=== PATIENT | female | born 1940 | race Caucasian/White ===

== ENCOUNTER 2016-09-07 21:47 | Inpatient (IN) | payer OTHER, BC ==
[~2016-09-07] VITALS: Ht 152.4 cm; Wt 80.0 kg
[~2016-09-07 21:47] MED LIST: ACYCLOVIR400 MG PO; AFRIN,GENASAL D15 ML BOTH NARES; ALLOPURINOL300 MG PO; ALPRAZOLAM0.25 M2 PO; AMLODIPINE BESY10 MG PO; ASPIR 8181 M1 PO; ASPIR-LOW81 MG PO; ASPIRIN81 M2 PO; ATENOLOL/CHLOR1 EAC1 PO; ATENOLOL50 MG PO; CARDIZEM CD180 MG PO; CARVEDILOL25 MG PO; CLARITIN10 M3 PO; CLONIDINE HCL0.1 MG PO; COLACE100 MG PO; COMBIVENT; COMBIVENT RESPIM4 GM IH; COREG25 M1 PO; COUMADIN1 MG PO; COUMADIN3 MG PO; CYANOCOBAL1000 MCG/2 IM; Colchicine,Colcrys PO; DAPSONE100 MG PO; DEXAMETHASONE4 MG PO; ELIQUIS5 MG PO; ENALAPRIL MALEA20 M1 PO; ENALAPRIL MALEA20 MG PO; ENTRESTO 97 MG1 EACH PO; FOLIC ACID1 MG PO; FUROSEMIDE20 MG PO; GABAPENTIN100 MG PO; GLIPIZIDE ER2.5 MG PO; GLIPIZIDE5 MG PO; GLUCOTROL5 MG PO; HYDROCODON-ACE1 EAC5 PO; HYDROCODON-ACE1 EAC9 PO; HYDROXYCHLOROQ200 MG PO; KEFLEX500 MG PO; KLOR-CON 1010 ME1 PO; LASIX20 MG PO; LEVOFLOXACIN750 MG PO; LISINOPRIL10 MG PO; LISINOPRIL5 MG PO; LO-DOSE ASPIRIN81 M1 PO; LORATADINE10 M2 PO; METFORMIN HCL500 MG PO; METHOTREXATE2.5 M2 PO; METHOTREXATE2.5 MG PO; NEURONTIN100 MG PO; NORCO 10/3251 TABLET PO; OXYCONTIN10 MG PO; OXYCONTIN15 MG PO; PERCOCET 7.51 TABLET PO; POTASSIUM CHLO10 ME3 PO; PREDNISONE10 MG PO; PROAIR HFA8.5 GM IH; PROBIOTIC1 EAC1 PO; PROCHLORPERAZIN10 MG PO; Percocet 5/325,Endoc PO; REVLIMID10 MG PO; REVLIMID2.5 MG PO; SPIRIVA RESPIMAT4 GM IH; SPIRONOLACTONE25 MG PO; TENORETIC 501 TABLET PO; TRAVATAN BOTH EYES; TRAVATAN Z5 ML BOTH EYES; VELCADE1 MG/ML IV; VENTOLIN HFA18 GM IH; VITAMIN B PO; VITAMIN D PO; VITAMIN D2000 UNIT PO; VOLTAREN 1% GE100 GM TP; WARFARIN SODIUM3 MG PO; XANAX0.25 MG PO; ZOMETA 4 M4 MG/100 M IV; ZOMETA4 MG/5 ML IV; ZYLOPRIM100 MG PO; ZYRTEC PO
[2016-09-07 23:16] LABS: PROTHROMBIN TIME 13.9 (9.2-11.2); PTT 35.6 (25-32)
[2016-09-07 23:18] LABS: BASE EXCESS 1.9 mEq/L (-3 to +3); BICARBONATE 26.6 mEq/L (22-26); CARBOXY HGB 1.9 % (0-5); METHEMOGLOBIN 0.8 % (0-1.5); PCO2 41 mm Hg (35-45); PO2 59 mm Hg (80-100); pH 7.42 (7.35-7.45)
[2016-09-07 23:18] LABS: CHLORIDE 100 mEq/L (99-109); POTASSIUM 3.4 mEq/L (3.7-5.4); SODIUM 134 mEq/L (136-147)
[2016-09-07 23:19] LABS: COMMENTS - BLOOD GASES A+C+; DEVICE NC; O2 FLOW 6 L/MIN; SITE LR
[2016-09-07 23:20] LABS: GLUCOSE 219 mg/dL (70-99)
[2016-09-07 23:21] LABS: ANION GAP 10 MEQ/L (2-14); MCHC 32.1 G/DL (30.0-36.0); MCV 90.4 FL (83-99); MEAN PLAT.VOLUME 9.7 uM^3 (9.5-12.4); PLATELET COUNT 147 K/uL (156-360); RBC DIS.WIDTH-CV 18.9 % (11.8-14.6); RBC DIS.WIDTH-SD 60.6 % (39-53); RED BLOOD COUNT 3.76 M/uL (3.80-5.20)
[2016-09-07 23:22] LABS: TOTAL BILIRUBIN 1.1 mg/dL (0.0-1.0)
[2016-09-07 23:23] LABS: ALKALINE PHOSPHATASE 89 IU/L (3-129)
[2016-09-07 23:24] LABS: GFR ESTIMATE (CALCULATED) 51 mL/min/
[2016-09-07 23:25] LABS: EOSINOPHIL (%) 0 % (0-5); IMMATURE GRANULOCYTE (%) 0.5 % (0.0-0.7); IMMATURE GRANULOCYTE COUNT 0.7 K/uL; LYMPHOCYTE COUNT 2.4 K/uL (1.0-2.8); MONOCYTE (%) 9.3 % (3-12); MONOCYTE COUNT 1.4 K/uL (0-0.8); NEUTROPHIL (%) 73.4 % (45-76); NEUTROPHIL COUNT 10.7 K/uL (1.8-6.4); UREA NITROGEN (BUN) 18 mg/dL (9-23)
[2016-09-07 23:27] LABS: LIPASE 16 U/L (1.0-51.0)
[2016-09-07 23:36] LABS: INTER. NORMALIZED RATIO 1.4
[2016-09-07 23:41] LABS: HEM NON-PRINT COM 1 A; WHITE BLOOD COUNT 14.6 K/uL (4.1-10.2)
[2016-09-07 23:53] LABS: INFLUENZA A VIRAL ANTIGEN POSITIVE; INFLUENZA B VIRAL ANTIGEN NEGATIVE
[2016-09-08] MEDS ORDERED: ASPIR 8181 M1 PO (00:46)
[2016-09-08] MEDS ORDERED: XARELTO20 MG PO (00:47)
[2016-09-08] MEDS ORDERED: OXYCONTIN20 MG PO (00:49)
[2016-09-08] MEDS ORDERED: DAILY VITE1 EAC1 PO (00:51)
[2016-09-08] MEDS ORDERED: VITAMIN D31000 UNI2 PO (00:51)
[2016-09-08] MEDS ORDERED: MIRALAX255 GM PO (00:53)
[2016-09-08] MEDS ORDERED: ZOVIRAX400 MG PO (00:54)
[2016-09-08] MEDS ORDERED: DAPSONE100 MG PO (00:55)
[2016-09-08] MEDS ORDERED: COMPAZINE10 MG PO (00:55)
[2016-09-08 05:30] LABS: CHLORIDE 101 mEq/L (99-109); POTASSIUM 3.2 mEq/L (3.7-5.4)
[2016-09-08 05:31] LABS: SODIUM 137 mEq/L (136-147)
[2016-09-08 05:33] LABS: GLUCOSE 325 mg/dL (70-99)
[2016-09-08 05:34] LABS: ANION GAP 9 MEQ/L (2-14)
[2016-09-08 05:35] LABS: TOTAL BILIRUBIN 0.9 mg/dL (0.0-1.0)
[2016-09-08 05:36] LABS: ALKALINE PHOSPHATASE 82 IU/L (3-129); GFR ESTIMATE (CALCULATED) 46 mL/min/
[2016-09-08 05:37] LABS: UREA NITROGEN (BUN) 20 mg/dL (9-23)
[2016-09-08 05:45] LABS: HEMATOCRIT 34.5 % (36.0-46.0); MCH 29.1 PG (29.0-34.0); MCHC 32.5 G/DL (30.0-36.0); MCV 89.6 FL (83-99); MEAN PLAT.VOLUME 10.3 uM^3 (9.5-12.4); PLATELET COUNT 136 K/uL (156-360); RBC DIS.WIDTH-CV 18.7 % (11.8-14.6); RBC DIS.WIDTH-SD 59.8 % (39-53); RED BLOOD COUNT 3.85 M/uL (3.80-5.20); WHITE BLOOD COUNT 15.3 K/uL (4.1-10.2)
[2016-09-08 06:56] LABS: ADD MIUA? YES; BILIRUBIN NEGATIVE; BLOOD SMALL; COLOR YELLOW ((YELLOW)); GLUCOSE (STRIP) 100; KETONES NEGATIVE; LEUKOCYTES NEGATIVE; NITRITE NEGATIVE; PROTEIN (STRIP) 100; SPECIFIC GRAVITY 1.021 (1.000-1.030); UROBILINOGEN 0.2 MG/DL (0.2-1.0)
[2016-09-08 07:39] LABS: BACTERIA NONE SEEN /HPF; CASTS NONE SEEN /LPF; CRYSTALS NONE SEEN; EPITHELIAL CELLS RARE /HPF; MUCUS NONE SEEN /LPF; RED BLOOD CELLS 0-5 /HPF (0-5); UCUL ADDED? NO; WHITE BLOOD CELLS NONE SEEN /HPF (0-5)
[2016-09-08 11:55] VITALS: BP 143/66
[2016-09-08 12:34] LABS: POINT-OF-CARE METER ID UU14100415
[2016-09-08 15:27] VITALS: BP 138/70
[2016-09-08 16:55] LABS: POINT-OF-CARE METER ID UU14100415
[2016-09-08 17:16] LABS: POINT-OF-CARE METER ID UU14100415
[2016-09-08 17:52] VITALS: BP 120/60
[2016-09-08 18:07] VITALS: BP 120/60
[2016-09-08 20:17] VITALS: BP 134/67
[2016-09-09] VITALS (8 sets, daily range): BP systolic 87–154; BP diastolic 50–71
[2016-09-09 08:07] LABS: HEMATOCRIT 32.9 % (36.0-46.0); MCH 28.8 PG (29.0-34.0); MCHC 31.6 G/DL (30.0-36.0); MCV 91.1 FL (83-99); MEAN PLAT.VOLUME 10.1 uM^3 (9.5-12.4); PLATELET COUNT 128 K/uL (156-360); RBC DIS.WIDTH-CV 18.6 % (11.8-14.6); RBC DIS.WIDTH-SD 62.4 % (39-53); RED BLOOD COUNT 3.61 M/uL (3.80-5.20); WHITE BLOOD COUNT 14.1 K/uL (4.1-10.2)
[2016-09-09 08:30] LABS: GFR ESTIMATE (CALCULATED) 51 mL/min/; GLUCOSE 164 mg/dL (70-99); POTASSIUM 3.4 MEQ/L (3.7-5.4); SODIUM 138 MEQ/L (136-147); UREA NITROGEN (BUN) 26 mg/dL (9-23)
[2016-09-09 08:31] LABS: ANION GAP 6 MEQ/L (2-14); CHLORIDE 101 MEQ/L (99-109); SAMPLE HEMOLYSIS CHECK 0; SAMPLE ICTERIC CHECK 0; SAMPLE LIPEMIA CHECK 0
[2016-09-09 17:25] LABS: METH RESISTANT S AUREUS PCR NEGATIVE (NEGATIVE)
[2016-09-09 17:44] LABS: PROBE CHECK PASS; SPECIMEN PROCESSING CONTROL PASS
[2016-09-10 03:39] VITALS: BP 121/57
[2016-09-10 07:07] LABS: HEMATOCRIT 32.9 % (36.0-46.0); MCH 28.7 PG (29.0-34.0); MCHC 31.6 G/DL (30.0-36.0); MCV 90.6 FL (83-99); MEAN PLAT.VOLUME 10.8 uM^3 (9.5-12.4); PLATELET COUNT 152 K/uL (156-360); RBC DIS.WIDTH-SD 59.8 % (39-53); RED BLOOD COUNT 3.63 M/uL (3.80-5.20); WHITE BLOOD COUNT 11.7 K/uL (4.1-10.2)
[2016-09-10 07:39] LABS: ANION GAP 7 MEQ/L (2-14); CHLORIDE 98 MEQ/L (99-109); GFR ESTIMATE (CALCULATED) 46 mL/min/; SAMPLE HEMOLYSIS CHECK 0; SAMPLE ICTERIC CHECK 0; SAMPLE LIPEMIA CHECK 0; SODIUM 136 MEQ/L (136-147); UREA NITROGEN (BUN) 33 mg/dL (9-23)
[2016-09-10 07:41] LABS: GLUCOSE 258 mg/dL (70-99); POTASSIUM 4.1 MEQ/L (3.7-5.4)
[2016-09-10 08:00] VITALS: BP 139/74
[2016-09-10 11:00] VITALS: BP 132/77
[2016-09-10 16:00] VITALS: BP 129/65
[2016-09-10 21:01] LABS: POINT-OF-CARE METER ID UU14188625
[2016-09-10 23:30] VITALS: BP 129/65
[2016-09-11 00:39] LABS: POINT-OF-CARE METER ID UU14188625
[2016-09-11 04:09] VITALS: BP 126/60
[2016-09-11 07:35] VITALS: BP 142/71
[2016-09-11 08:45] LABS: HEMATOCRIT 34.5 % (36.0-46.0); MCH 28.5 PG (29.0-34.0); MCHC 31.6 G/DL (30.0-36.0); MCV 90.1 FL (83-99); MEAN PLAT.VOLUME 10.8 uM^3 (9.5-12.4); PLATELET COUNT 152 K/uL (156-360); RBC DIS.WIDTH-CV 17.5 % (11.8-14.6); RBC DIS.WIDTH-SD 58.2 % (39-53); RED BLOOD COUNT 3.83 M/uL (3.80-5.20); WHITE BLOOD COUNT 11.9 K/uL (4.1-10.2)
[2016-09-11 08:54] LABS: POINT-OF-CARE METER ID UU14174225
[2016-09-11 09:14] LABS: ANION GAP 9 MEQ/L (2-14); CHLORIDE 98 MEQ/L (99-109); GFR ESTIMATE (CALCULATED) 36 mL/min/; GLUCOSE 261 mg/dL (70-99); POTASSIUM 4.3 MEQ/L (3.7-5.4); SAMPLE HEMOLYSIS CHECK 0; SAMPLE ICTERIC CHECK 0; SAMPLE LIPEMIA CHECK 0; SODIUM 134 MEQ/L (136-147)
[2016-09-11 09:15] LABS: UREA NITROGEN (BUN) 50 mg/dL (9-23)
[2016-09-11 11:48] VITALS: BP 144/68
[2016-09-11 15:36] VITALS: BP 138/58
[2016-09-11 19:41] VITALS: BP 132/65
[2016-09-12 00:39] VITALS: BP 144/71
[2016-09-12 03:55] VITALS: BP 137/64
[2016-09-12 08:40] VITALS: BP 161/80
[2016-09-12 08:40] LABS: HEMATOCRIT 35.7 % (36.0-46.0); MCH 28.5 PG (29.0-34.0); MCHC 31.1 G/DL (30.0-36.0); MCV 91.8 FL (83-99); MEAN PLAT.VOLUME 11.3 uM^3 (9.5-12.4); PLATELET COUNT 167 K/uL (156-360); RBC DIS.WIDTH-CV 17.4 % (11.8-14.6); RBC DIS.WIDTH-SD 58.5 % (39-53); RED BLOOD COUNT 3.89 M/uL (3.80-5.20)
[2016-09-12 08:56] LABS: ANION GAP 7 MEQ/L (2-14); CHLORIDE 100 MEQ/L (99-109); GFR ESTIMATE (CALCULATED) 46 mL/min/; GLUCOSE 161 mg/dL (70-99); POTASSIUM 4.2 MEQ/L (3.7-5.4); SAMPLE HEMOLYSIS CHECK 0; SAMPLE ICTERIC CHECK 0; SAMPLE LIPEMIA CHECK 0; SODIUM 140 MEQ/L (136-147); UREA NITROGEN (BUN) 46 mg/dL (9-23)
[2016-09-12 11:53] VITALS: BP 169/75
[2016-09-12 15:40] VITALS: BP 110/67
[2016-09-12 20:00] VITALS: BP 139/70
[2016-09-12 21:32] LABS: POINT-OF-CARE METER ID UU14188625
[2016-09-13 00:07] VITALS: BP 155/71
[2016-09-13 04:00] VITALS: BP 149/68
[2016-09-13 07:39] LABS: HEMATOCRIT 35.4 % (36.0-46.0); MCH 28.4 PG (29.0-34.0); MCHC 31.4 G/DL (30.0-36.0); MCV 90.5 FL (83-99); MEAN PLAT.VOLUME 10.5 uM^3 (9.5-12.4); PLATELET COUNT 146 K/uL (156-360); RBC DIS.WIDTH-CV 17.3 % (11.8-14.6); RBC DIS.WIDTH-SD 57.4 % (39-53); RED BLOOD COUNT 3.91 M/uL (3.80-5.20); WHITE BLOOD COUNT 15.6 K/uL (4.1-10.2)
[2016-09-13 07:44] VITALS: BP 139/63
[2016-09-13 08:04] LABS: ANION GAP 6 MEQ/L (2-14); CHLORIDE 99 MEQ/L (99-109); GFR ESTIMATE (CALCULATED) 46 mL/min/; POTASSIUM 4.3 MEQ/L (3.7-5.4); SAMPLE HEMOLYSIS CHECK 0; SAMPLE ICTERIC CHECK 0; SAMPLE LIPEMIA CHECK 0; SODIUM 138 MEQ/L (136-147); UREA NITROGEN (BUN) 40 mg/dL (9-23)
[2016-09-13 08:13] LABS: GLUCOSE 115 mg/dL (70-99)
[2016-09-13 08:57] LABS: HEMATOLOGY COMMENT 1 REV
[2016-09-13 11:42] VITALS: BP 132/62
[2016-09-13 11:50] LABS: POINT-OF-CARE METER ID UU14174225
[2016-09-13 12:07] LABS: POINT-OF-CARE METER ID UU14174225
[2016-09-13 15:19] VITALS: BP 130/68
[2016-09-13 20:00] VITALS: BP 142/75
[2016-09-14] VITALS: BP 136/81
[2016-09-14 03:43] VITALS: BP 141/83
[2016-09-14 04:10] LABS: HEMATOCRIT 35.5 % (36.0-46.0); MCH 28.4 PG (29.0-34.0); MCHC 31.5 G/DL (30.0-36.0); MCV 90.1 FL (83-99); MEAN PLAT.VOLUME 10.6 uM^3 (9.5-12.4); PLATELET COUNT 169 K/uL (156-360); RBC DIS.WIDTH-CV 17.2 % (11.8-14.6); RBC DIS.WIDTH-SD 54.6 % (39-53); RED BLOOD COUNT 3.94 M/uL (3.80-5.20)
[2016-09-14 04:21] LABS: CHLORIDE 100 mEq/L (99-109); POTASSIUM 4.5 mEq/L (3.7-5.4); SODIUM 137 mEq/L (136-147)
[2016-09-14 04:23] LABS: GLUCOSE 147 mg/dL (70-99)
[2016-09-14 04:24] LABS: ANION GAP 5 MEQ/L (2-14)
[2016-09-14 04:27] LABS: GFR ESTIMATE (CALCULATED) 46 mL/min/
[2016-09-14 04:28] LABS: UREA NITROGEN (BUN) 37 mg/dL (9-23)
[2016-09-14 07:29] VITALS: BP 162/78
[2016-09-14 08:04] LABS: POINT-OF-CARE METER ID UU14188625
[2016-09-14 11:37] VITALS: BP 145/79
[2016-09-14 11:47] LABS: POINT-OF-CARE METER ID UU14188625
[2016-09-14 15:30] VITALS: BP 134/60
[2016-09-14 17:06] LABS: POINT-OF-CARE METER ID UU14188625
[2016-09-14 20:00] VITALS: BP 155/69
[2016-09-15] VITALS (7 sets, daily range): BP systolic 131–147; BP diastolic 63–86
[2016-09-15 10:51] LABS: HEMATOCRIT 38.5 % (36.0-46.0); MCH 28.4 PG (29.0-34.0); MCHC 31.2 G/DL (30.0-36.0); MEAN PLAT.VOLUME 10.9 uM^3 (9.5-12.4); PLATELET COUNT 167 K/uL (156-360); RBC DIS.WIDTH-CV 18.1 % (11.8-14.6); RBC DIS.WIDTH-SD 57.6 % (39-53); RED BLOOD COUNT 4.23 M/uL (3.80-5.20); WHITE BLOOD COUNT 14.8 K/uL (4.1-10.2)
[2016-09-15 11:03] LABS: ANION GAP 10 MEQ/L (2-14); CHLORIDE 98 MEQ/L (99-109); GFR ESTIMATE (CALCULATED) 57 mL/min/; GLUCOSE 133 mg/dL (70-99); POTASSIUM 4.7 MEQ/L (3.7-5.4); SAMPLE HEMOLYSIS CHECK 1; SAMPLE ICTERIC CHECK 0; SAMPLE LIPEMIA CHECK 0; SODIUM 136 MEQ/L (136-147); UREA NITROGEN (BUN) 33 mg/dL (9-23)
[2016-09-16 07:34] VITALS: BP 138/72
[2016-09-16 07:56] LABS: POINT-OF-CARE METER ID UU14174225
[2016-09-16 11:26] VITALS: BP 116/69
[2016-09-16 11:33] LABS: POINT-OF-CARE METER ID UU14174225
[2016-09-16 16:00] VITALS: BP 135/76
[2016-09-16 16:37] LABS: POINT-OF-CARE METER ID UU14188625
[2016-09-16 19:38] VITALS: BP 149/75
[2016-09-16 21:38] LABS: POINT-OF-CARE METER ID UU14188625
[2016-09-16 23:49] VITALS: BP 148/71
[2016-09-17 04:00] VITALS: BP 132/65
[2016-09-17 08:23] VITALS: BP 142/81
[2016-09-17 08:38] LABS: POINT-OF-CARE METER ID UU14174225
[2016-09-17 09:54] LABS: HEMATOCRIT 34.2 % (36.0-46.0); MCH 29.4 PG (29.0-34.0); MCHC 31.6 G/DL (30.0-36.0); MCV 93.2 FL (83-99); PLATELET COUNT 143 K/uL (156-360); RBC DIS.WIDTH-CV 19.5 % (11.8-14.6); RBC DIS.WIDTH-SD 62.5 % (39-53); RED BLOOD COUNT 3.67 M/uL (3.80-5.20); WHITE BLOOD COUNT 20.1 K/uL (4.1-10.2)
[2016-09-17 10:38] LABS: ANION GAP 5 MEQ/L (2-14); CHLORIDE 95 MEQ/L (99-109); GFR ESTIMATE (CALCULATED) > 59 mL/min/; GLUCOSE 177 mg/dL (70-99); POTASSIUM 4.5 MEQ/L (3.7-5.4); SAMPLE HEMOLYSIS CHECK 0; SAMPLE ICTERIC CHECK 0; SAMPLE LIPEMIA CHECK 0; SODIUM 133 MEQ/L (136-147); UREA NITROGEN (BUN) 28 mg/dL (9-23)
[2016-09-17 12:19] VITALS: BP 155/69
[2016-09-17 12:23] LABS: POINT-OF-CARE METER ID UU14188625
[2016-09-17 16:05] VITALS: BP 146/71
[2016-09-17 17:14] LABS: POINT-OF-CARE METER ID UU14174225
[2016-09-17 20:00] VITALS: BP 174/89
[2016-09-17 20:25] LABS: POINT-OF-CARE METER ID UU14174225
[2016-09-17 23:57] VITALS: BP 139/71
[2016-09-18 03:33] VITALS: BP 130/60
[2016-09-18 07:13] LABS: HEMATOCRIT 33.8 % (36.0-46.0); MCH 29.8 PG (29.0-34.0); MCV 93.1 FL (83-99); MEAN PLAT.VOLUME 10.9 uM^3 (9.5-12.4); NRBC (%) 0.5 /100 WBC (0-0); PLATELET COUNT 137 K/uL (156-360); RBC DIS.WIDTH-CV 19.9 % (11.8-14.6); RBC DIS.WIDTH-SD 63.4 % (39-53); RED BLOOD COUNT 3.63 M/uL (3.80-5.20)
[2016-09-18 07:36] LABS: ANION GAP 5 MEQ/L (2-14); CHLORIDE 99 MEQ/L (99-109); GFR ESTIMATE (CALCULATED) > 59 mL/min/; POTASSIUM 4.4 MEQ/L (3.7-5.4); SAMPLE HEMOLYSIS CHECK 0; SAMPLE ICTERIC CHECK 0; SAMPLE LIPEMIA CHECK 0; SODIUM 136 MEQ/L (136-147); UREA NITROGEN (BUN) 28 mg/dL (9-23)
[2016-09-18 07:37] LABS: GLUCOSE 89 mg/dL (70-99)
[2016-09-18 07:40] VITALS: BP 188/90
[2016-09-18 09:25] LABS: ABS NEUTROPHIL COUNT 13.48; ANISOCYTOSIS 2+; EOSINOPHIL (%) 0 % (0-5); HYPOCHROMASIA 2+; IMMATURE GRANULOCYTE (%) 2.5 % (0.0-0.7); IMMATURE GRANULOCYTE COUNT 0.5 K/uL; LYMPHOCYTE COUNT 4.3 K/uL (1.0-2.8); MACROCYTES 2+; MONOCYTE (%) 5.3 % (3-12); NEUTROPHIL (%) 69.5 % (45-76); NEUTROPHIL COUNT 13.2 K/uL (1.8-6.4); PLAT.SUFFICIENCY DECREASED; POLYCHROMASIA OCC; SPHEROCYTES OCC; USER ID TLW
[2016-09-18 11:09] VITALS: BP 134/72
[2016-09-18] MEDS ORDERED: ADVAIR HFA120 INHALA IH (13:52)
[2016-09-18] MEDS ORDERED: PREDNISONE10 MG PO (13:52)
[2016-09-18] MEDS ORDERED: FUROSEMIDE20 MG PO (13:52)
[2016-09-18] MEDS ORDERED: SPIRIVA RESPIMAT4 GM IH (13:52)
[2016-09-18] MEDS ORDERED: DOXYCYCLINE HY100 M3 PO (13:52)
== END 2016-09-18 15:43 | disposition home health service (06) | DRG 871 ==
LOC: EME 21:47 → EDOF 09-08 00:47 → 5SOUTH 09-08 00:47
PROVIDERS: Emergency Medicine; Hospitalist; Internal Medicine; Physician Assistant Medical
PROC: 8E0ZXY6 Isolation (ICD-10-PCS; principal; 2016-09-08)
PROC: 5A09357 Assistance with Respiratory Ventilation, Less than 24 Consecutive Hours, Continuous Positive Airway Pressure (ICD-10-PCS; 2016-09-09)
DX: A41.9 Sepsis, unspecified organism (principal); J13 Pneumonia due to Streptococcus pneumoniae; I50.43 Acute on chronic combined systolic (congestive) and diastolic (congestive) heart failure; J96.01 Acute respiratory failure with hypoxia; C90.00 Multiple myeloma not having achieved remission; J98.11 Atelectasis; J44.1 Chronic obstructive pulmonary disease with (acute) exacerbation; I42.9 Cardiomyopathy, unspecified; N17.9 Acute kidney failure, unspecified; N18.3 Chronic kidney disease, stage 3 (moderate); I48.2 Chronic atrial fibrillation; J09.X2 Influenza due to identified novel influenza A virus with other respiratory manifestations; J09.X9 Influenza due to identified novel influenza A virus with other manifestations; E11.22 Type 2 diabetes mellitus with diabetic chronic kidney disease; I27.2 Other secondary pulmonary hypertension; G47.33 Obstructive sleep apnea (adult) (pediatric); E66.9 Obesity, unspecified; E87.6 Hypokalemia; E11.65 Type 2 diabetes mellitus with hyperglycemia; E11.42 Type 2 diabetes mellitus with diabetic polyneuropathy; R65.20 Severe sepsis without septic shock; D64.81 Anemia due to antineoplastic chemotherapy; G89.29 Other chronic pain; D63.1 Anemia in chronic kidney disease; I25.10 Atherosclerotic heart disease of native coronary artery without angina pectoris; Z77.22 Contact with and (suspected) exposure to environmental tobacco smoke (acute) (chronic); Z68.33 Body mass index [BMI] 33.0-33.9, adult; Z85.528 Personal history of other malignant neoplasm of kidney; Z79.01 Long term (current) use of anticoagulants; Z88.5 Allergy status to narcotic agent; Z88.2 Allergy status to sulfonamides; Z88.3 Allergy status to other anti-infective agents; Z85.3 Personal history of malignant neoplasm of breast; Z90.5 Acquired absence of kidney; Z90.12 Acquired absence of left breast and nipple; Z87.891 Personal history of nicotine dependence
CPT/HCPCS: 36600; 71010; 71250; 80048; 80053; 81003; 82565; 82803; 82948; 83605; 83690; 83880; 83986 90; 85025; 85027; 85610; 85730; 87040; 87502; 87641; 89051; 94640; 94640 76; 94660; 94760; 94799; 97530 GO; 99202; 99281; 99285; J0696; J1100; J1815; J1940; J2543; J2920; J2930; J3260; J3370; J7050; J7512; J7644

== ENCOUNTER 2016-12-16 09:46 | Observation (INO) | payer OTHER, BC ==
[~2016-12-16] VITALS: Ht 157.5 cm; Wt 77.2 kg
[~2016-12-16 09:46] MED LIST changes: +ADVAIR HFA120 INHALA IH; +COMPAZINE10 MG PO; +DAILY VITE1 EAC1 PO; +DOXYCYCLINE HY100 M3 PO; +MIRALAX255 GM PO; +OXYCONTIN20 MG PO; +VITAMIN D31000 UNI2 PO; +XARELTO20 MG PO; +ZOVIRAX400 MG PO
[2016-12-16 10:02] LABS: BASOPHIL COUNT 0.1 K/uL (0-0.1); EOSINOPHIL (%) 4.2 % (0-5); EOSINOPHIL COUNT 0.4 K/uL (0-0.3); HEMATOCRIT 36.6 % (36.0-46.0); IMMATURE GRANULOCYTE (%) 0.5 % (0.0-0.7); INSTRUMENT ABS NEUTROPHIL CT 4.6 K/uL; LYMPHOCYTE COUNT 2.8 K/uL (1.0-2.8); MCH 30.9 PG (29.0-34.0); MCHC 33.1 G/DL (30.0-36.0); MCV 93.6 FL (83-99); MEAN PLAT.VOLUME 9.2 uM^3 (9.5-12.4); MONOCYTE (%) 7.9 % (3-12); MONOCYTE COUNT 0.7 K/uL (0-0.8); NEUTROPHIL (%) 53.7 % (45-76); NEUTROPHIL COUNT 4.6 K/uL (1.8-6.4); PLATELET COUNT 163 K/uL (156-360); RBC DIS.WIDTH-CV 14.4 % (11.8-14.6); RBC DIS.WIDTH-SD 49.1 % (39-53); RED BLOOD COUNT 3.91 M/uL (3.80-5.20); WHITE BLOOD COUNT 8.5 K/uL (4.1-10.2)
[2016-12-16 10:11] LABS: INTER. NORMALIZED RATIO 1.5; PROTHROMBIN TIME 15.8 (9.2-11.2); PTT 41.8 (25-32)
[2016-12-16 10:22] LABS: TROP-I INTERPRETATION NEGATIVE; TROPONIN-I < 0.01 ng/mL (0.0-0.30)
[2016-12-16 10:29] LABS: AMYLASE 28 IU/L (1-118); CHLORIDE 103 mEq/L (99-109); POTASSIUM 3.6 mEq/L (3.7-5.4); SODIUM 141 mEq/L (136-147)
[2016-12-16 10:31] LABS: GLUCOSE 136 mg/dL (70-99)
[2016-12-16 10:32] LABS: ANION GAP 9 MEQ/L (2-14)
[2016-12-16 10:34] LABS: SERUM ETHYL ALCOHOL < 10 mg/dL
[2016-12-16 10:35] LABS: GFR ESTIMATE (CALCULATED) 46 mL/min/; UREA NITROGEN (BUN) 23 mg/dL (9-23)
[2016-12-16 10:38] LABS: LIPASE 26 U/L (1.0-51.0)
[2016-12-16 10:57] LABS: ADD MIUA? YES; BILIRUBIN NEGATIVE; BLOOD NEGATIVE; COLOR YELLOW ((YELLOW)); GLUCOSE (STRIP) NEGATIVE; KETONES NEGATIVE; LEUKOCYTES NEGATIVE; NITRITE NEGATIVE; PROTEIN (STRIP) >=500; SPECIFIC GRAVITY 1.017 (1.000-1.030); UROBILINOGEN 0.2 MG/DL (0.2-1.0)
[2016-12-16 11:05] LABS: BACTERIA RARE /HPF; EPITHELIAL CELLS NONE SEEN /HPF; MUCUS TRACE /LPF; UCUL ADDED? NO; WHITE BLOOD CELLS 0-5 /HPF (0-5)
[2016-12-16 11:11] LABS: AMPHETAMINE NEGATIVE (500 ng/mL); BARBITURATES NEGATIVE (200 ng/mL); BENZODIAZEPINES NEGATIVE (150 ng/mL); COCAINE NEGATIVE (150 ng/mL); INTERNAL CONTROLS VALID? YES; METHADONE NEGATIVE (200 ng/mL); METHAMPHETAMINE NEGATIVE (500 ng/mL); OPIATES (MORPHINE) NEGATIVE (100 ng/mL); OXYCODONE PRESUMPTIVE POSITIVE (100 ng/mL); PHENCYCLIDINE NEGATIVE (25 ng/mL); PROPOXYPHENE NEGATIVE (300 ng/mL); THC CANNABINOIDS NEGATIVE (50 ng/mL); TRICYCLIC ANTIDEPRESSANTS NEGATIVE (300 ng/mL)
[2016-12-16] MEDS ORDERED: GLUCOTROL5 MG PO (13:40)
[2016-12-16] MEDS ORDERED: CARDIZEM CD,CA180 MG PO (13:41)
[2016-12-16] MEDS ORDERED: LASIX20 MG PO (13:45)
[2016-12-16 16:30] VITALS: BP 145/73
[2016-12-16 17:12] LABS: TROP-I INTERPRETATION NEGATIVE; TROPONIN-I < 0.01 ng/mL (0.0-0.30)
[2016-12-16 17:21] LABS: POINT-OF-CARE METER ID UU14162513
[2016-12-16 19:59] VITALS: BP 170/80
[2016-12-16 22:54] LABS: TROP-I INTERPRETATION NEGATIVE; TROPONIN-I < 0.01 ng/mL (0.0-0.30)
[2016-12-17 00:35] VITALS: BP 124/74
[2016-12-17 04:44] VITALS: BP 139/80
[2016-12-17 07:15] VITALS: BP 135/65
[2016-12-17 07:33] LABS: POINT-OF-CARE METER ID UU13113700
[2016-12-17 11:30] VITALS: BP 125/58
[2016-12-17 12:18] LABS: POINT-OF-CARE METER ID UU13113700
[2016-12-17] MEDS ORDERED: ALLOPURINOL300 MG PO (12:50)
== END 2016-12-17 14:36 | disposition home health service (06) ==
LOC: EME → EDBD 09:46 → EME 09:46 → EDOF 12:49 → 5WEST 12:49 → EDOF 12:49 → 5WEST 16:23
PROVIDERS: Emergency Medicine; Internal Medicine; Student in an Organized Health Care Education/Training Program
DX: G45.9 Transient cerebral ischemic attack, unspecified (principal); R47.81 Slurred speech; M62.81 Muscle weakness (generalized); I48.0 Paroxysmal atrial fibrillation; I13.0 Hypertensive heart and chronic kidney disease with heart failure and stage 1 through stage 4 chronic kidney disease, or unspecified chronic kidney disease; N18.9 Chronic kidney disease, unspecified; I50.9 Heart failure, unspecified; I27.2 Other secondary pulmonary hypertension; E11.22 Type 2 diabetes mellitus with diabetic chronic kidney disease; J44.9 Chronic obstructive pulmonary disease, unspecified; I42.9 Cardiomyopathy, unspecified; Z85.3 Personal history of malignant neoplasm of breast; Z85.528 Personal history of other malignant neoplasm of kidney; C90.00 Multiple myeloma not having achieved remission; Z90.10 Acquired absence of unspecified breast and nipple; I07.1 Rheumatic tricuspid insufficiency; C79.51 Secondary malignant neoplasm of bone; R31.9 Hematuria, unspecified; M19.90 Unspecified osteoarthritis, unspecified site; G47.30 Sleep apnea, unspecified; Z86.711 Personal history of pulmonary embolism
CPT/HCPCS: 70450; 70553; 80048; 81003; 82150; 82948; 83690; 84484; 85025; 85610; 85730; 86900; 86901; 93005; 93306; 93880; 99202; 99281; 99285; G0378; G0480; G8978 GP CI; G8979 GP CH; J2060

== ENCOUNTER 2017-01-10 12:16 | Emergency (ER) | payer OTHER, BC ==
[~2017-01-10] VITALS: Ht 147.3 cm; Wt 76.2 kg
[~2017-01-10 12:16] MED LIST changes: +CARDIZEM CD,CA180 MG PO
[2017-01-10 16:08] LABS: HEMATOCRIT 36.1 % (36.0-46.0); MCH 31.1 PG (29.0-34.0); MCHC 33.8 G/DL (30.0-36.0); MCV 92.1 FL (83-99); PLATELET COUNT 183 K/uL (156-360); RBC DIS.WIDTH-SD 47.5 % (39-53); RED BLOOD COUNT 3.92 M/uL (3.80-5.20); WHITE BLOOD COUNT 9.5 K/uL (4.1-10.2)
[2017-01-10 16:16] LABS: CHLORIDE 101 mEq/L (99-109); POTASSIUM 3.2 mEq/L (3.7-5.4); SODIUM 140 mEq/L (136-147)
[2017-01-10 16:17] LABS: GLUCOSE 143 mg/dL (70-99)
[2017-01-10 16:19] LABS: ANION GAP 10 MEQ/L (2-14)
[2017-01-10 16:21] LABS: GFR ESTIMATE (CALCULATED) 51 mL/min/
[2017-01-10 16:22] LABS: UREA NITROGEN (BUN) 20 mg/dL (9-23)
[2017-01-10 16:28] LABS: TROP-I INTERPRETATION NEGATIVE; TROPONIN-I < 0.01 ng/mL (0.0-0.30)
[2017-01-10 17:55] VITALS: BP 182/88
== END 2017-01-10 17:58 | disposition home or self-care (01) ==
LOC: EME 12:16
PROVIDERS: Physician Assistant
DX: I10 Essential (primary) hypertension (principal); I45.10 Unspecified right bundle-branch block; E11.9 Type 2 diabetes mellitus without complications; Z79.84 Long term (current) use of oral hypoglycemic drugs; Z79.01 Long term (current) use of anticoagulants; Z79.82 Long term (current) use of aspirin; Z90.12 Acquired absence of left breast and nipple; Z90.5 Acquired absence of kidney; Z85.528 Personal history of other malignant neoplasm of kidney
CPT/HCPCS: 80048; 81003; 84484; 85027; 93005; 99281; 99285

== ENCOUNTER 2017-03-22 19:15 | Emergency (ER) | payer OTHER, BC ==
[~2017-03-22] VITALS: Ht 149.9 cm; Wt 80.0 kg
[2017-03-22 23:16] VITALS: BP 182/58
== END 2017-03-22 23:17 | disposition home or self-care (01) ==
LOC: EME 19:15
DX: S42.032A Displaced fracture of lateral end of left clavicle, initial encounter for closed fracture (principal); X50.0XXA Overexertion from strenuous movement or load, initial encounter; X50.9XXA Other and unspecified overexertion or strenuous movements or postures, initial encounter; I10 Essential (primary) hypertension; J44.9 Chronic obstructive pulmonary disease, unspecified; M79.7 Fibromyalgia; E11.9 Type 2 diabetes mellitus without complications; Z90.12 Acquired absence of left breast and nipple; Z85.528 Personal history of other malignant neoplasm of kidney; Z96.651 Presence of right artificial knee joint
CPT/HCPCS: 73000

== ENCOUNTER 2017-05-04 12:55 | Emergency (ER) | payer OTHER, BC ==
[~2017-05-04] VITALS: Ht 152.4 cm; Wt 82.2 kg
[2017-05-04 17:12] VITALS: BP 197/88
== END 2017-05-04 17:14 | disposition home or self-care (01) ==
LOC: EME 12:55
DX: S00.83XA Contusion of other part of head, initial encounter (principal); W10.9XXA Fall (on) (from) unspecified stairs and steps, initial encounter; I11.0 Hypertensive heart disease with heart failure; I50.9 Heart failure, unspecified; J44.9 Chronic obstructive pulmonary disease, unspecified; E11.9 Type 2 diabetes mellitus without complications; M79.7 Fibromyalgia; C90.00 Multiple myeloma not having achieved remission; F41.9 Anxiety disorder, unspecified; Z85.528 Personal history of other malignant neoplasm of kidney; Z96.651 Presence of right artificial knee joint; Z79.01 Long term (current) use of anticoagulants
CPT/HCPCS: 70450; 72125; 99281; 99283

== ENCOUNTER 2017-06-13 10:05 | Emergency (ER) | payer OTHER, BC ==
[~2017-06-13] VITALS: Ht 152.4 cm; Wt 81.0 kg
[2017-06-13 16:31] VITALS: BP 187/81
== END 2017-06-13 16:32 | disposition home or self-care (01) ==
LOC: EME 10:05
DX: M25.561 Pain in right knee (principal); G89.29 Other chronic pain; C90.00 Multiple myeloma not having achieved remission; Z96.651 Presence of right artificial knee joint; Z88.2 Allergy status to sulfonamides; Z88.5 Allergy status to narcotic agent; Z88.1 Allergy status to other antibiotic agents; Z88.8 Allergy status to other drugs, medicaments and biological substances
CPT/HCPCS: 73700; 99281; 99284; J3010

== ENCOUNTER 2017-06-17 09:51 | Inpatient (IN) | payer OTHER, BC ==
[~2017-06-17] VITALS: Ht 152.4 cm; Wt 92.7 kg
[2017-06-17 11:15] LABS: BASOPHIL COUNT 0.1 K/uL (0-0.1); EOSINOPHIL (%) 2.6 % (0-5); EOSINOPHIL COUNT 0.3 K/uL (0-0.3); HEMATOCRIT 27.9 % (36.0-46.0); IMMATURE GRANULOCYTE (%) 0.6 % (0.0-0.7); IMMATURE GRANULOCYTE COUNT 0.1 K/uL; LYMPHOCYTE COUNT 2.4 K/uL (1.0-2.8); MCH 30.9 PG (29.0-34.0); MCHC 31.9 G/DL (30.0-36.0); MEAN PLAT.VOLUME 10.9 uM^3 (9.5-12.4); MONOCYTE (%) 6.6 % (3-12); MONOCYTE COUNT 0.8 K/uL (0-0.8); NEUTROPHIL (%) 69.1 % (45-76); PLATELET COUNT 158 K/uL (156-360); RBC DIS.WIDTH-CV 14.7 % (11.8-14.6); RBC DIS.WIDTH-SD 51.8 % (39-53); RED BLOOD COUNT 2.88 M/uL (3.80-5.20); WHITE BLOOD COUNT 11.6 K/uL (4.1-10.2)
[2017-06-17 11:18] LABS: MCV 96.9 FL (83-99)
[2017-06-17 11:40] LABS: CK-MB 1.7 ng/mL (0.0-4.9)
[2017-06-17 11:47] LABS: CHLORIDE 104 mEq/L (99-109); POTASSIUM 3.9 mEq/L (3.7-5.4); SODIUM 138 mEq/L (136-147)
[2017-06-17 11:49] LABS: GLUCOSE 250 mg/dL (70-99)
[2017-06-17 11:51] LABS: ANION GAP 9 MEQ/L (2-14); TOTAL BILIRUBIN 0.7 mg/dL (0.0-1.0)
[2017-06-17 11:53] LABS: ALKALINE PHOSPHATASE 82 IU/L (3-129); GFR ESTIMATE (CALCULATED) 46 mL/min/
[2017-06-17 11:54] LABS: UREA NITROGEN (BUN) 24 mg/dL (9-23)
[2017-06-17 11:56] LABS: CREATINE KINASE 225 IU/L (1-294); TOTAL CK 225 IU/L (1-294)
[2017-06-17 12:29] LABS: ADD MIUA? YES; BILIRUBIN NEGATIVE; BLOOD SMALL; COLOR YELLOW ((YELLOW)); GLUCOSE (STRIP) 50; KETONES NEGATIVE; LEUKOCYTES NEGATIVE; NITRITE NEGATIVE; PROTEIN (STRIP) 100; SPECIFIC GRAVITY 1.013 (1.000-1.030); UROBILINOGEN 0.2 MG/DL (0.2-1.0)
[2017-06-17 12:33] LABS: BACTERIA NONE SEEN /HPF; EPITHELIAL CELLS RARE /HPF; MUCUS TRACE /LPF; RED BLOOD CELLS 0-5 /HPF (0-5); UCUL ADDED? NO; WHITE BLOOD CELLS 0-5 /HPF (0-5)
[2017-06-17] MEDS ORDERED: OXYCONTIN15 MG PO (13:24)
[2017-06-17] MEDS ORDERED: LOSARTAN POTASS25 MG PO (13:29)
[2017-06-17] MEDS ORDERED: DARZALEX100 MG/5 M IV ×2 (13:31→13:32)
[2017-06-17] MEDS ORDERED: NOVOLIN,HU100 UNITS1 SC (13:32)
[2017-06-17 13:40] VITALS: BP 134/63
[2017-06-17 16:00] VITALS: BP 140/66
[2017-06-17 17:02] LABS: POINT-OF-CARE METER ID UU14117124
[2017-06-17 20:13] VITALS: BP 128/62
[2017-06-17 22:43] LABS: POINT-OF-CARE METER ID UU14117124
[2017-06-18] VITALS (16 sets, daily range): BP systolic 105–140; BP diastolic 51–65
[2017-06-18 06:55] LABS: POINT-OF-CARE METER ID UU14208753
[2017-06-18 07:02] LABS: HEMATOCRIT 19.4 % (36.0-46.0); MEAN PLAT.VOLUME 10.8 uM^3 (9.5-12.4); PLATELET COUNT 137 K/uL (156-360); RBC DIS.WIDTH-CV 15.3 % (11.8-14.6); RBC DIS.WIDTH-SD 52.7 % (39-53); WHITE BLOOD COUNT 11.4 K/uL (4.1-10.2)
[2017-06-18 07:06] LABS: ANION GAP 10 MEQ/L (2-14); CHLORIDE 103 MEQ/L (99-109); GFR ESTIMATE (CALCULATED) 29 mL/min/; GLUCOSE 204 mg/dL (70-99); POTASSIUM 3.4 MEQ/L (3.7-5.4); SAMPLE HEMOLYSIS CHECK 0; SAMPLE ICTERIC CHECK 0; SAMPLE LIPEMIA CHECK 0; SODIUM 138 MEQ/L (136-147); UREA NITROGEN (BUN) 33 mg/dL (9-23)
[2017-06-18 11:26] LABS: POINT-OF-CARE METER ID UU14149397
[2017-06-18 16:37] LABS: POINT-OF-CARE METER ID UU14149397
[2017-06-18 19:07] LABS: BASOPHIL COUNT 0.1 K/uL (0-0.1); EOSINOPHIL (%) 0.3 % (0-5); EOSINOPHIL COUNT 0.1 K/uL (0-0.3); IMMATURE GRANULOCYTE (%) 0.8 % (0.0-0.7); IMMATURE GRANULOCYTE COUNT 0.1 K/uL; INSTRUMENT ABS NEUTROPHIL CT 10.5 K/uL; LYMPHOCYTE COUNT 2.9 K/uL (1.0-2.8); MCHC 32.6 G/DL (30.0-36.0); MCV 92.2 FL (83-99); MEAN PLAT.VOLUME 10.2 uM^3 (9.5-12.4); MONOCYTE (%) 13.6 % (3-12); MONOCYTE COUNT 2.1 K/uL (0-0.8); NEUTROPHIL (%) 66.4 % (45-76); NEUTROPHIL COUNT 10.5 K/uL (1.8-6.4); PLATELET COUNT 128 K/uL (156-360); RBC DIS.WIDTH-CV 18.2 % (11.8-14.6); RBC DIS.WIDTH-SD 59.6 % (39-53); RED BLOOD COUNT 2.93 M/uL (3.80-5.20); WHITE BLOOD COUNT 15.8 K/uL (4.1-10.2)
[2017-06-19] VITALS (8 sets, daily range): BP systolic 100–146; BP diastolic 51–63
[2017-06-19 06:34] LABS: POINT-OF-CARE METER ID UU14117124
[2017-06-19 07:12] LABS: BASOPHIL COUNT 0.1 K/uL (0-0.1); EOSINOPHIL (%) 0.5 % (0-5); EOSINOPHIL COUNT 0.1 K/uL (0-0.3); HEMATOCRIT 25.2 % (36.0-46.0); IMMATURE GRANULOCYTE COUNT 0.2 K/uL; INSTRUMENT ABS NEUTROPHIL CT 10.3 K/uL; LYMPHOCYTE COUNT 2.3 K/uL (1.0-2.8); MCH 30.2 PG (29.0-34.0); MCHC 32.9 G/DL (30.0-36.0); MCV 91.6 FL (83-99); MEAN PLAT.VOLUME 10.6 uM^3 (9.5-12.4); MONOCYTE (%) 13.7 % (3-12); MONOCYTE COUNT 2.1 K/uL (0-0.8); NEUTROPHIL (%) 69.2 % (45-76); NEUTROPHIL COUNT 10.3 K/uL (1.8-6.4); PLATELET COUNT 128 K/uL (156-360); RBC DIS.WIDTH-CV 18.6 % (11.8-14.6); RBC DIS.WIDTH-SD 61.3 % (39-53); RED BLOOD COUNT 2.75 M/uL (3.80-5.20); WHITE BLOOD COUNT 14.9 K/uL (4.1-10.2)
[2017-06-19 07:33] LABS: INTER. NORMALIZED RATIO 1.4; PROTHROMBIN TIME 16.6 SEC (10.2-12.9)
[2017-06-19 07:50] LABS: ANION GAP 9 MEQ/L (2-14); CHLORIDE 101 MEQ/L (99-109); GFR ESTIMATE (CALCULATED) 33 mL/min/; GLUCOSE 247 mg/dL (70-99); POTASSIUM 3.7 MEQ/L (3.7-5.4); SAMPLE HEMOLYSIS CHECK 0; SAMPLE ICTERIC CHECK 0; SAMPLE LIPEMIA CHECK 0; SODIUM 133 MEQ/L (136-147); UREA NITROGEN (BUN) 42 mg/dL (9-23)
[2017-06-19 11:50] LABS: POINT-OF-CARE METER ID UU14117124
[2017-06-19 16:55] LABS: POINT-OF-CARE METER ID UU14117124
[2017-06-19 21:33] LABS: POINT-OF-CARE METER ID UU13113675
[2017-06-19 23:06] LABS: EOSINOPHIL (%) 0.4 % (0-5); EOSINOPHIL COUNT 0.1 K/uL (0-0.3); HEMATOCRIT 30.9 % (36.0-46.0); IMMATURE GRANULOCYTE (%) 1.2 % (0.0-0.7); IMMATURE GRANULOCYTE COUNT 0.2 K/uL; INSTRUMENT ABS NEUTROPHIL CT 15.2 K/uL; LYMPHOCYTE COUNT 1.8 K/uL (1.0-2.8); MCH 30.4 PG (29.0-34.0); MONOCYTE (%) 10.4 % (3-12); NEUTROPHIL (%) 78.5 % (45-76); NEUTROPHIL COUNT 15.2 K/uL (1.8-6.4); NRBC (%) 0.2 /100 WBC (0-0); PLATELET COUNT 127 K/uL (156-360); RBC DIS.WIDTH-SD 55.3 % (39-53); WHITE BLOOD COUNT 19.3 K/uL (4.1-10.2)
[2017-06-19 23:14] LABS: RED BLOOD COUNT 3.36 M/uL (3.80-5.20)
[2017-06-20] VITALS (13 sets, daily range): BP systolic 107–149; BP diastolic 54–71
[2017-06-20 06:35] LABS: POINT-OF-CARE METER ID UU14208753
[2017-06-20 06:54] LABS: EOSINOPHIL (%) 0 % (0-5); HEMATOCRIT 24.7 % (36.0-46.0); IMMATURE GRANULOCYTE (%) 1.3 % (0.0-0.7); IMMATURE GRANULOCYTE COUNT 0.2 K/uL; INSTRUMENT ABS NEUTROPHIL CT 10.8 K/uL; LYMPHOCYTE COUNT 1.2 K/uL (1.0-2.8); MCH 29.9 PG (29.0-34.0); MCHC 32.8 G/DL (30.0-36.0); MCV 91.1 FL (83-99); MEAN PLAT.VOLUME 11.1 uM^3 (9.5-12.4); MONOCYTE (%) 6.7 % (3-12); MONOCYTE COUNT 0.9 K/uL (0-0.8); NEUTROPHIL (%) 82.5 % (45-76); NEUTROPHIL COUNT 10.8 K/uL (1.8-6.4); PLATELET COUNT 118 K/uL (156-360); RBC DIS.WIDTH-CV 17.1 % (11.8-14.6); RBC DIS.WIDTH-SD 55.8 % (39-53); RED BLOOD COUNT 2.71 M/uL (3.80-5.20); WHITE BLOOD COUNT 13.1 K/uL (4.1-10.2)
[2017-06-20 07:10] LABS: ANION GAP 10 MEQ/L (2-14); CHLORIDE 105 MEQ/L (99-109); POTASSIUM 4.1 MEQ/L (3.7-5.4); SAMPLE HEMOLYSIS CHECK 0; SAMPLE ICTERIC CHECK 0; SAMPLE LIPEMIA CHECK 0; SODIUM 136 MEQ/L (136-147)
[2017-06-20 07:15] LABS: GFR ESTIMATE (CALCULATED) 39 mL/min/; GLUCOSE 280 mg/dL (70-99); UREA NITROGEN (BUN) 44 mg/dL (9-23)
[2017-06-20 12:02] LABS: POINT-OF-CARE METER ID UU14188577
[2017-06-20 15:52] LABS: POINT-OF-CARE METER ID UU14188577
[2017-06-21 00:37] VITALS: BP 138/66
[2017-06-21 04:29] VITALS: BP 134/63
[2017-06-21 06:38] LABS: EOSINOPHIL (%) 0.2 % (0-5); HEMATOCRIT 30.3 % (36.0-46.0); IMMATURE GRANULOCYTE COUNT 0.1 K/uL; INSTRUMENT ABS NEUTROPHIL CT 8.8 K/uL; LYMPHOCYTE COUNT 2.3 K/uL (1.0-2.8); MCHC 32.7 G/DL (30.0-36.0); MCV 91.8 FL (83-99); MONOCYTE (%) 10.6 % (3-12); MONOCYTE COUNT 1.3 K/uL (0-0.8); NEUTROPHIL (%) 69.8 % (45-76); NEUTROPHIL COUNT 8.8 K/uL (1.8-6.4); NRBC (%) 0.2 /100 WBC (0-0); RBC DIS.WIDTH-CV 17.1 % (11.8-14.6); RBC DIS.WIDTH-SD 54.8 % (39-53); WHITE BLOOD COUNT 12.6 K/uL (4.1-10.2)
[2017-06-21 06:57] LABS: ANION GAP 6 MEQ/L (2-14); CHLORIDE 105 MEQ/L (99-109); GFR ESTIMATE (CALCULATED) 36 mL/min/; GLUCOSE 229 mg/dL (70-99); POTASSIUM 4.3 MEQ/L (3.7-5.4); SAMPLE HEMOLYSIS CHECK 0; SAMPLE ICTERIC CHECK 0; SAMPLE LIPEMIA CHECK 0; SODIUM 137 MEQ/L (136-147); UREA NITROGEN (BUN) 49 mg/dL (9-23)
[2017-06-21 07:00] LABS: POINT-OF-CARE METER ID UU14188577
[2017-06-21 07:32] LABS: MEAN PLAT.VOLUME 11.7 uM^3 (9.5-12.4); PLAT.SUFFICIENCY DECREASED; PLATELET COUNT 137 K/uL (156-360)
[2017-06-21 08:57] VITALS: BP 125/65
[2017-06-21 12:09] LABS: POINT-OF-CARE METER ID UU14117124
[2017-06-21 15:49] LABS: BASE EXCESS 1.1 mEq/L (-3 to +3); BICARBONATE 25.1 mEq/L (22-26); CARBOXY HGB 0.4 % (0-5); COMMENTS - BLOOD GASES A+C+; DEVICE NC; METHEMOGLOBIN 16.4 % (0-1.5); O2 FLOW 5 L/MIN; PCO2 37 mm Hg (35-45); PO2 76 mm Hg (80-100); SITE RR; pH 7.44 (7.35-7.45)
[2017-06-21 15:50] LABS: TOTAL RESP RATE 20 resp/min
[2017-06-21 16:11] VITALS: BP 153/67
[2017-06-21 17:06] LABS: POINT-OF-CARE METER ID UU14117124
[2017-06-21 19:53] VITALS: BP 149/65
[2017-06-21 23:44] VITALS: BP 155/71
[2017-06-22 04:19] VITALS: BP 140/62
[2017-06-22 06:53] LABS: POINT-OF-CARE METER ID UU14208753
[2017-06-22 07:13] LABS: EOSINOPHIL (%) 2.2 % (0-5); EOSINOPHIL COUNT 0.3 K/uL (0-0.3); HEMATOCRIT 29.8 % (36.0-46.0); IMMATURE GRANULOCYTE (%) 1.2 % (0.0-0.7); IMMATURE GRANULOCYTE COUNT 0.1 K/uL; INSTRUMENT ABS NEUTROPHIL CT 7.3 K/uL; LYMPHOCYTE COUNT 2.9 K/uL (1.0-2.8); MCH 29.2 PG (29.0-34.0); MCHC 31.9 G/DL (30.0-36.0); MCV 91.7 FL (83-99); MEAN PLAT.VOLUME 10.3 uM^3 (9.5-12.4); MONOCYTE (%) 11.6 % (3-12); MONOCYTE COUNT 1.4 K/uL (0-0.8); NEUTROPHIL (%) 60.5 % (45-76); NEUTROPHIL COUNT 7.3 K/uL (1.8-6.4); NRBC (%) 0.2 /100 WBC (0-0); PLATELET COUNT 134 K/uL (156-360); RBC DIS.WIDTH-CV 17.1 % (11.8-14.6); RBC DIS.WIDTH-SD 56.2 % (39-53); RED BLOOD COUNT 3.25 M/uL (3.80-5.20)
[2017-06-22 07:37] VITALS: BP 138/69
[2017-06-22 07:39] LABS: ANION GAP 8 MEQ/L (2-14); CHLORIDE 103 MEQ/L (99-109); GLUCOSE 202 mg/dL (70-99); SAMPLE HEMOLYSIS CHECK 0; SAMPLE ICTERIC CHECK 0; SAMPLE LIPEMIA CHECK 0; SODIUM 138 MEQ/L (136-147); UREA NITROGEN (BUN) 37 mg/dL (9-23)
[2017-06-22 07:40] LABS: GFR ESTIMATE (CALCULATED) 57 mL/min/; POTASSIUM 3.4 MEQ/L (3.7-5.4)
[2017-06-22 11:57] VITALS: BP 134/64
[2017-06-22 12:26] LABS: POINT-OF-CARE METER ID UU14117124
[2017-06-22 16:22] VITALS: BP 140/63
[2017-06-22 16:38] LABS: POINT-OF-CARE METER ID UU14208753
[2017-06-22 19:34] VITALS: BP 144/71
[2017-06-23] VITALS: BP 123/59
[2017-06-23 06:53] LABS: POINT-OF-CARE METER ID UU14117124
[2017-06-23 08:00] VITALS: BP 104/66
[2017-06-23 12:12] VITALS: BP 122/58
[2017-06-23 12:18] LABS: POINT-OF-CARE METER ID UU14149397
[2017-06-23 15:48] LABS: POINT-OF-CARE METER ID UU14149397
[2017-06-23 16:00] VITALS: BP 111/59
[2017-06-23 20:48] VITALS: BP 134/74
[2017-06-23 21:59] LABS: POINT-OF-CARE METER ID UU14149397
[2017-06-24 00:32] VITALS: BP 128/65
[2017-06-24 04:28] VITALS: BP 128/58
[2017-06-24 06:11] LABS: BASOPHIL COUNT 0.1 K/uL (0-0.1); EOSINOPHIL (%) 4.8 % (0-5); EOSINOPHIL COUNT 0.6 K/uL (0-0.3); HEMATOCRIT 27.4 % (36.0-46.0); IMMATURE GRANULOCYTE (%) 2.8 % (0.0-0.7); IMMATURE GRANULOCYTE COUNT 0.4 K/uL; INSTRUMENT ABS NEUTROPHIL CT 6.7 K/uL; LYMPHOCYTE COUNT 3.2 K/uL (1.0-2.8); MCH 29.5 PG (29.0-34.0); MCV 95.1 FL (83-99); MEAN PLAT.VOLUME 10.8 uM^3 (9.5-12.4); MONOCYTE (%) 11.7 % (3-12); MONOCYTE COUNT 1.4 K/uL (0-0.8); NEUTROPHIL COUNT 6.7 K/uL (1.8-6.4); NRBC (%) 0.2 /100 WBC (0-0); PLATELET COUNT 154 K/uL (156-360); RBC DIS.WIDTH-CV 17.1 % (11.8-14.6); RED BLOOD COUNT 2.88 M/uL (3.80-5.20); WHITE BLOOD COUNT 12.3 K/uL (4.1-10.2)
[2017-06-24 06:33] LABS: POINT-OF-CARE METER ID UU14149397
[2017-06-24 06:34] LABS: ANION GAP 5 MEQ/L (2-14); CHLORIDE 103 MEQ/L (99-109); GFR ESTIMATE (CALCULATED) 51 mL/min/; GLUCOSE 215 mg/dL (70-99); SAMPLE HEMOLYSIS CHECK 0; SAMPLE ICTERIC CHECK 0; SAMPLE LIPEMIA CHECK 0; SODIUM 138 MEQ/L (136-147); UREA NITROGEN (BUN) 43 mg/dL (9-23)
[2017-06-24 06:35] LABS: POTASSIUM 4.5 MEQ/L (3.7-5.4)
[2017-06-24 08:30] VITALS: BP 132/72
[2017-06-24 11:35] LABS: POINT-OF-CARE METER ID UU14149397
[2017-06-24 15:55] VITALS: BP 123/61
[2017-06-24 16:35] LABS: POINT-OF-CARE METER ID UU14149397
[2017-06-24 20:00] VITALS: BP 147/63
[2017-06-24 22:15] LABS: POINT-OF-CARE METER ID UU14149397
[2017-06-25 00:21] VITALS: BP 147/63
[2017-06-25 04:12] VITALS: BP 118/59
[2017-06-25 07:03] LABS: BASOPHIL COUNT 0.1 K/uL (0-0.1); EOSINOPHIL COUNT 0.7 K/uL (0-0.3); HEMATOCRIT 27.6 % (36.0-46.0); IMMATURE GRANULOCYTE (%) 4.3 % (0.0-0.7); IMMATURE GRANULOCYTE COUNT 0.5 K/uL; INSTRUMENT ABS NEUTROPHIL CT 6.5 K/uL; LYMPHOCYTE COUNT 3.1 K/uL (1.0-2.8); MCH 29.9 PG (29.0-34.0); MCHC 31.2 G/DL (30.0-36.0); MCV 95.8 FL (83-99); MEAN PLAT.VOLUME 10.5 uM^3 (9.5-12.4); MONOCYTE (%) 9.6 % (3-12); MONOCYTE COUNT 1.2 K/uL (0-0.8); NEUTROPHIL (%) 54.2 % (45-76); NEUTROPHIL COUNT 6.5 K/uL (1.8-6.4); NRBC (%) 0.3 /100 WBC (0-0); PLATELET COUNT 173 K/uL (156-360); RBC DIS.WIDTH-CV 17.1 % (11.8-14.6); RBC DIS.WIDTH-SD 58.5 % (39-53); RED BLOOD COUNT 2.88 M/uL (3.80-5.20)
[2017-06-25 07:26] LABS: POINT-OF-CARE METER ID UU14149397
[2017-06-25 07:48] VITALS: BP 134/59
[2017-06-25 07:54] LABS: ANION GAP 5 MEQ/L (2-14); CHLORIDE 104 MEQ/L (99-109); GFR ESTIMATE (CALCULATED) 46 mL/min/; GLUCOSE 168 mg/dL (70-99); POTASSIUM 4.2 MEQ/L (3.7-5.4); SAMPLE HEMOLYSIS CHECK 1; SAMPLE ICTERIC CHECK 0; SAMPLE LIPEMIA CHECK 0; SODIUM 139 MEQ/L (136-147); UREA NITROGEN (BUN) 45 mg/dL (9-23)
[2017-06-25 11:47] LABS: POINT-OF-CARE METER ID UU14149397
[2017-06-25 12:08] VITALS: BP 128/59
[2017-06-25 17:39] LABS: POINT-OF-CARE METER ID UU14117124
[2017-06-25 19:50] VITALS: BP 130/64
[2017-06-25 21:39] LABS: POINT-OF-CARE METER ID UU14117124
[2017-06-25 23:38] VITALS: BP 146/69
[2017-06-26 04:36] VITALS: BP 131/60
[2017-06-26 07:07] LABS: POINT-OF-CARE METER ID UU14208753
[2017-06-26 08:26] VITALS: BP 135/62
[2017-06-26 11:25] LABS: POINT-OF-CARE METER ID UU14117124
[2017-06-26 11:51] VITALS: BP 114/56
[2017-06-26 16:59] LABS: POINT-OF-CARE METER ID UU14117124
[2017-06-26 17:07] VITALS: BP 140/56
[2017-06-26 19:40] VITALS: BP 138/65
[2017-06-26 21:41] LABS: POINT-OF-CARE METER ID UU14188577
[2017-06-26 23:34] VITALS: BP 115/63
[2017-06-27 03:34] VITALS: BP 132/63
[2017-06-27 06:37] LABS: POINT-OF-CARE METER ID UU14208753
[2017-06-27 07:02] LABS: MCH 29.7 PG (29.0-34.0); MCHC 30.8 G/DL (30.0-36.0); MCV 96.5 FL (83-99); MEAN PLAT.VOLUME 10.6 uM^3 (9.5-12.4); NRBC (%) 0.4 /100 WBC (0-0); RBC DIS.WIDTH-CV 17.1 % (11.8-14.6); RBC DIS.WIDTH-SD 58.7 % (39-53); RED BLOOD COUNT 2.59 M/uL (3.80-5.20); WHITE BLOOD COUNT 12.7 K/uL (4.1-10.2)
[2017-06-27 07:22] LABS: PLATELET COUNT 228 K/uL (156-360)
[2017-06-27 07:25] LABS: ANION GAP 6 MEQ/L (2-14); CHLORIDE 103 MEQ/L (99-109); GFR ESTIMATE (CALCULATED) 46 mL/min/; GLUCOSE 150 mg/dL (70-99); POTASSIUM 4.2 MEQ/L (3.7-5.4); SAMPLE HEMOLYSIS CHECK 0; SAMPLE ICTERIC CHECK 0; SAMPLE LIPEMIA CHECK 0; SODIUM 140 MEQ/L (136-147); UREA NITROGEN (BUN) 43 mg/dL (9-23)
[2017-06-27 07:32] LABS: ABS NEUTROPHIL COUNT 7.9; ANISOCYTOSIS 2+; ATYPICAL LYMPHOCYTE 2.6 %; BAND NEUTROPHILS 3.5 % (0-8.0); EOSINOPHIL ABS CT 0.9; INSTRUMENT ABS NEUTROPHIL CT 7.3 K/uL; LYMPHOCYTES 20.2 % (15.0-45.0); MACROCYTES 1+; METAMYELOCYTES 2.6 %; MICROCYTOSIS 2+; PLAT.SUFFICIENCY ADEQUATE; POLYCHROMASIA 2+; SEG.NEUTROPHILS 58.8 % (46.0-76.0); STOMATOCYTES 1+; TEAR DROP CELLS 1+
[2017-06-27 08:06] VITALS: BP 124/58
[2017-06-27 11:29] VITALS: BP 106/55
[2017-06-27 12:18] LABS: POINT-OF-CARE METER ID UU14188577
[2017-06-27 13:29] LABS: HEMATOCRIT 24.1 % (36.0-46.0); MCV 97.2 FL (83-99)
[2017-06-27 16:08] VITALS: BP 110/54
[2017-06-27 16:58] LABS: POINT-OF-CARE METER ID UU14208753
[2017-06-27 19:17] VITALS: BP 117/58
[2017-06-27 21:42] LABS: POINT-OF-CARE METER ID UU14208753
[2017-06-27 23:22] VITALS: BP 110/56
[2017-06-28 03:44] VITALS: BP 134/60
[2017-06-28 06:28] LABS: POINT-OF-CARE METER ID UU14117124
[2017-06-28 08:23] LABS: HEMATOCRIT 24.9 % (36.0-46.0); MCH 29.8 PG (29.0-34.0); MCHC 31.3 G/DL (30.0-36.0); MEAN PLAT.VOLUME 10.9 uM^3 (9.5-12.4); NRBC (%) 0.2 /100 WBC (0-0); PLATELET COUNT 262 K/uL (156-360); RBC DIS.WIDTH-SD 57.7 % (39-53); RED BLOOD COUNT 2.62 M/uL (3.80-5.20); WHITE BLOOD COUNT 13.8 K/uL (4.1-10.2)
[2017-06-28 08:25] VITALS: BP 122/56
[2017-06-28 08:32] LABS: CHLORIDE 101 MEQ/L (99-109); POTASSIUM 4.1 MEQ/L (3.7-5.4); SAMPLE HEMOLYSIS CHECK 0; SAMPLE ICTERIC CHECK 0; SODIUM 137 MEQ/L (136-147)
[2017-06-28 08:33] LABS: ANION GAP 6 MEQ/L (2-14); SAMPLE LIPEMIA CHECK 0
[2017-06-28 08:38] LABS: GFR ESTIMATE (CALCULATED) 51 mL/min/; GLUCOSE 170 mg/dL (70-99); UREA NITROGEN (BUN) 41 mg/dL (9-23)
[2017-06-28 08:52] LABS: ABS NEUTROPHIL COUNT 8.2; ANISOCYTOSIS 2+; BAND NEUTROPHILS 8.1 % (0-8.0); BASOPHILS 0.9 %; EOSINOPHIL ABS CT 0.7; EOSINOPHILS 5.4 % (0-5.0); INSTRUMENT ABS NEUTROPHIL CT 8.1 K/uL; LYMPHOCYTES 24.3 % (15.0-45.0); MACROCYTES 1+; METAMYELOCYTES 2.7 %; MYELOCYTES 1.8 %; PLAT.SUFFICIENCY ADEQUATE; POLYCHROMASIA 1+; SEG.NEUTROPHILS 51.4 % (46.0-76.0); STOMATOCYTES 1+
[2017-06-28 11:37] LABS: POINT-OF-CARE METER ID UU14188577
[2017-06-28 16:27] VITALS: BP 124/77
[2017-06-28 17:21] LABS: POINT-OF-CARE METER ID UU14188577
[2017-06-28 20:46] VITALS: BP 127/61
[2017-06-29] VITALS (12 sets, daily range): BP systolic 90–137; BP diastolic 46–83
[2017-06-29 06:54] LABS: POINT-OF-CARE METER ID UU14117124
[2017-06-29 09:39] LABS: HEMATOCRIT 24.4 % (36.0-46.0); MCH 29.6 PG (29.0-34.0); MCHC 29.9 G/DL (30.0-36.0); MCV 98.8 FL (83-99); MEAN PLAT.VOLUME 10.9 uM^3 (9.5-12.4); NRBC (%) 0.4 /100 WBC (0-0); PLATELET COUNT 259 K/uL (156-360); RBC DIS.WIDTH-CV 17.5 % (11.8-14.6); RBC DIS.WIDTH-SD 60.5 % (39-53); RED BLOOD COUNT 2.47 M/uL (3.80-5.20); WHITE BLOOD COUNT 13.3 K/uL (4.1-10.2)
[2017-06-29 10:31] LABS: ABS NEUTROPHIL COUNT 7.7; ANISOCYTOSIS 1+; EOSINOPHIL ABS CT 0.4; INSTRUMENT ABS NEUTROPHIL CT 7.9 K/uL; PLAT.SUFFICIENCY ADEQUATE; POLYCHROMASIA 1+; STOMATOCYTES 1+
[2017-06-29 11:53] LABS: POINT-OF-CARE METER ID UU14117124
[2017-06-29 16:27] LABS: POINT-OF-CARE METER ID UU14117124
[2017-06-29 20:53] LABS: HEMATOCRIT 23.6 % (36.0-46.0); MCV 98.3 FL (83-99)
[2017-06-30] VITALS (9 sets, daily range): BP systolic 107–146; BP diastolic 53–68
[2017-06-30 06:26] LABS: POINT-OF-CARE METER ID UU14188577
[2017-06-30 06:59] LABS: HEMATOCRIT 26.2 % (36.0-46.0); MCH 30.1 PG (29.0-34.0); MCHC 30.9 G/DL (30.0-36.0); MCV 97.4 FL (83-99); MEAN PLAT.VOLUME 10.8 uM^3 (9.5-12.4); NRBC (%) 0.3 /100 WBC (0-0); PLATELET COUNT 242 K/uL (156-360); RBC DIS.WIDTH-CV 18.6 % (11.8-14.6); RBC DIS.WIDTH-SD 60.9 % (39-53); RED BLOOD COUNT 2.69 M/uL (3.80-5.20); WHITE BLOOD COUNT 12.8 K/uL (4.1-10.2)
[2017-06-30 07:22] LABS: ANION GAP 5 MEQ/L (2-14); CHLORIDE 103 MEQ/L (99-109); GFR ESTIMATE (CALCULATED) 39 mL/min/; GLUCOSE 101 mg/dL (70-99); POTASSIUM 4.6 MEQ/L (3.7-5.4); SAMPLE HEMOLYSIS CHECK 0; SAMPLE ICTERIC CHECK 0; SAMPLE LIPEMIA CHECK 0; SODIUM 140 MEQ/L (136-147); UREA NITROGEN (BUN) 42 mg/dL (9-23)
[2017-06-30 07:29] LABS: ABS NEUTROPHIL COUNT 7.6; ANISOCYTOSIS 2+; EOSINOPHIL ABS CT 0.5; HEMATOLOGY COMMENT 1 SMEAR COMPATIBLE; INSTRUMENT ABS NEUTROPHIL CT 7.3 K/uL; MACROCYTES 1+; PLAT.SUFFICIENCY ADEQUATE; POLYCHROMASIA 1+; SPHEROCYTES 1+
[2017-06-30 12:04] LABS: POINT-OF-CARE METER ID UU14208753
[2017-06-30 17:06] LABS: POINT-OF-CARE METER ID UU14188577
[2017-07-01 04:13] VITALS: BP 131/58
[2017-07-01 06:33] LABS: POINT-OF-CARE METER ID UU14208753
[2017-07-01 07:44] VITALS: BP 130/61
[2017-07-01 11:39] LABS: POINT-OF-CARE METER ID UU14117124
[2017-07-01 12:07] VITALS: BP 129/58
[2017-07-01] MEDS ORDERED: FUROSEMIDE40 MG PO (15:04)
[2017-07-01] MEDS ORDERED: NOVOLOG PE100 UNITS/ SC (15:05)
[2017-07-01] MEDS ORDERED: LEVEMIR100 UNIT/2 SC (15:06)
[2017-07-01] MEDS ORDERED: XANAX0.25 MG PO (15:06)
[2017-07-01] MEDS ORDERED: OXYCONTIN15 MG PO (15:06)
[2017-07-01] MEDS ORDERED: HYDROCODON-ACE1 EAC9 PO (15:06)
[2017-07-01 16:13] VITALS: BP 126/62
[2017-07-01 16:30] LABS: POINT-OF-CARE METER ID UU14208753
== END 2017-07-01 17:40 | DRG 480 ==
LOC: EME → EDBD 09:51 → EME 09:51 → 3EAST 12:05 → EDOF 12:05 → ENRESERV 12:07 → 3EAST 13:39
PROVIDERS: Anesthesiology; Emergency Medicine; Internal Medicine; Physician Assistant; Student in an Organized Health Care Education/Training Program
PROC: 30233N1 Transfusion of Nonautologous Red Blood Cells into Peripheral Vein, Percutaneous Approach (ICD-10-PCS; principal; 2017-06-18)
PROC: 0QS704Z Reposition Left Upper Femur with Internal Fixation Device, Open Approach (ICD-10-PCS; 2017-06-19)
PROC: 0QS604Z Reposition Right Upper Femur with Internal Fixation Device, Open Approach (ICD-10-PCS; 2017-06-19)
DX: M84.551A Pathological fracture in neoplastic disease, right femur, initial encounter for fracture (principal); M84.552A Pathological fracture in neoplastic disease, left femur, initial encounter for fracture; C90.00 Multiple myeloma not having achieved remission; J95.821 Acute postprocedural respiratory failure; J95.89 Other postprocedural complications and disorders of respiratory system, not elsewhere classified; J98.11 Atelectasis; Y83.8 Other surgical procedures as the cause of abnormal reaction of the patient, or of later complication, without mention of misadventure at the time of the procedure; D63.0 Anemia in neoplastic disease; D62 Acute posthemorrhagic anemia; N17.9 Acute kidney failure, unspecified; I13.0 Hypertensive heart and chronic kidney disease with heart failure and stage 1 through stage 4 chronic kidney disease, or unspecified chronic kidney disease; N18.9 Chronic kidney disease, unspecified; I50.22 Chronic systolic (congestive) heart failure; E11.22 Type 2 diabetes mellitus with diabetic chronic kidney disease; J44.9 Chronic obstructive pulmonary disease, unspecified; Z99.81 Dependence on supplemental oxygen; I25.5 Ischemic cardiomyopathy; E66.9 Obesity, unspecified; Z68.34 Body mass index [BMI] 34.0-34.9, adult; Z66 Do not resuscitate; Z51.5 Encounter for palliative care; I27.20 Pulmonary hypertension, unspecified; E11.65 Type 2 diabetes mellitus with hyperglycemia; I48.0 Paroxysmal atrial fibrillation; I48.2 Chronic atrial fibrillation; K59.03 Drug induced constipation; T40.2X5A Adverse effect of other opioids, initial encounter; E87.6 Hypokalemia; T50.1X5A Adverse effect of loop [high-ceiling] diuretics, initial encounter; G89.3 Neoplasm related pain (acute) (chronic); I25.10 Atherosclerotic heart disease of native coronary artery without angina pectoris; E78.5 Hyperlipidemia, unspecified; G47.33 Obstructive sleep apnea (adult) (pediatric); M79.7 Fibromyalgia; M10.9 Gout, unspecified; Z75.1 Person awaiting admission to adequate facility elsewhere; W18.30XA Fall on same level, unspecified, initial encounter; Y92.009 Unspecified place in unspecified non-institutional (private) residence as the place of occurrence of the external cause; Z74.01 Bed confinement status; Z85.3 Personal history of malignant neoplasm of breast; Z90.10 Acquired absence of unspecified breast and nipple; Z85.528 Personal history of other malignant neoplasm of kidney; Z90.5 Acquired absence of kidney; Z86.711 Personal history of pulmonary embolism; Z79.01 Long term (current) use of anticoagulants; Z96.651 Presence of right artificial knee joint; Z79.84 Long term (current) use of oral hypoglycemic drugs; Z79.891 Long term (current) use of opiate analgesic; Z79.899 Other long term (current) drug therapy
CPT/HCPCS: 36600; 71010; 71250; 73522; 73552; 73560; 76000; 80048; 80053; 81003; 82550; 82553; 82803; 82948; 85014; 85018; 85025; 85025 91; 85027; 85610; 86850; 86870; 86900; 86901; 86920; 87086; 88305; 88311; 93005; 94010; 94640; 94640 76; 94660; 94760; 94799; 97530 GO; 97530 GP; 99202; 99281; 99284; C1713; J0131; J0330; J0690; J1100; J1170; J1815; J1940; J2405; J3010; J3480; J7030; P9016; S0028

== ENCOUNTER 2017-09-27 16:00 | Inpatient (IN) | payer OTHER, BC ==
[~2017-09-27] VITALS: Ht 152.4 cm; Wt 80.9 kg
[~2017-09-27 16:00] MED LIST changes: +DARZALEX100 MG/5 M IV; +FUROSEMIDE40 MG PO; +LEVEMIR100 UNIT/2 SC; +LOSARTAN POTASS25 MG PO; +NOVOLIN,HU100 UNITS1 SC; +NOVOLOG PE100 UNITS/ SC
[2017-09-27 17:33] LABS: BASOPHIL (%) 1.4 % (0-1); EOSINOPHIL (%) 4.7 % (0-5); EOSINOPHIL COUNT 0.1 K/uL (0-0.3); HEMATOCRIT 23.6 % (36.0-46.0); HEMOGLOBIN 7.6 G/DL (11.9-15.5); IMMATURE GRANULOCYTE (%) 0.7 % (0.0-0.7); LYMPHOCYTE (%) 48.1 % (15-42); LYMPHOCYTE COUNT 1.4 K/uL (1.0-2.8); MCH 32.1 PG (29.0-34.0); MCHC 32.2 G/DL (30.0-36.0); MCV 99.6 FL (83-99); MONOCYTE (%) 13.2 % (3-12); MONOCYTE COUNT 0.4 K/uL (0-0.8); NEUTROPHIL (%) 31.9 % (45-76); NEUTROPHIL COUNT 0.9 K/uL (1.8-6.4); PLATELET COUNT 97 K/uL (156-360); RBC DIS.WIDTH-CV 17.5 % (11.8-14.6); RBC DIS.WIDTH-SD 63.7 % (39-53)
[2017-09-27 17:41] LABS: RED BLOOD COUNT 2.37 M/uL (3.80-5.20)
[2017-09-27 17:42] LABS: ALBUMIN 3.4 g/dL (3.2-4.8)
[2017-09-27 17:43] LABS: CHLORIDE 102 mEq/L (99-109); POTASSIUM 4.3 mEq/L (3.7-5.4); SODIUM 138 mEq/L (136-147)
[2017-09-27 17:45] LABS: GLUCOSE 165 mg/dL (70-99); TOTAL PROTEIN 6.4 g/dL (6.4-8.3)
[2017-09-27 17:47] LABS: TOTAL BILIRUBIN 0.8 mg/dL (0.0-1.0)
[2017-09-27 17:48] LABS: ALKALINE PHOSPHATASE 105 IU/L (3-129)
[2017-09-27 17:49] LABS: CREATININE 1.7 mg/dL (0.6-1.3); GFR ESTIMATE (CALCULATED) 31 mL/min/
[2017-09-27 17:50] LABS: AST (GOT) 12 IU/L (2-34); UREA NITROGEN (BUN) 33 mg/dL (9-23)
[2017-09-27 17:52] LABS: ALT (GPT) 9 IU/L (3-49)
[2017-09-27 17:54] LABS: TROP-I INTERPRETATION NEGATIVE; TROPONIN-I < 0.01 ng/mL (0.0-0.30)
[2017-09-27 18:07] LABS: APPEARANCE CLEAR ((CLEAR)); BILIRUBIN NEGATIVE; BLOOD SMALL; COLOR YELLOW ((YELLOW)); GLUCOSE (STRIP) NEGATIVE; KETONES NEGATIVE; LEUKOCYTES TRACE; NITRITE NEGATIVE; PROTEIN (STRIP) 30; SPECIFIC GRAVITY 1.015 (1.000-1.030); UROBILINOGEN 0.2 MG/DL (0.2-1.0)
[2017-09-27 18:12] LABS: BACTERIA NONE SEEN /HPF; EPITHELIAL CELLS RARE /HPF; MUCUS TRACE /LPF; UCUL ADDED? YES
[2017-09-27] MEDS ORDERED: INCRUSE ELLI62.5 MCG IH (19:52)
[2017-09-27] MEDS ORDERED: ADVAIR 250/501 DISK IH (19:58)
[2017-09-27] MEDS ORDERED: LO-DOSE ASPIRIN81 M2 PO (19:58)
[2017-09-27] MEDS ORDERED: TYLENOL REGULA325 MG PO (20:02)
[2017-09-27] MEDS ORDERED: VOLTAREN 1% GE100 GM TP (20:10)
[2017-09-27] MEDS ORDERED: LASIX40 MG PO (20:15)
[2017-09-27 20:30] VITALS: BP 149/67
[2017-09-27] MEDS ORDERED: GLUCOTROL5 MG PO (20:37)
[2017-09-27 20:47] VITALS: BP 133/62
[2017-09-27 21:47] VITALS: BP 136/66
[2017-09-27 22:15] VITALS: BP 176/74
[2017-09-27 22:50] VITALS: BP 152/70
[2017-09-28] VITALS (10 sets, daily range): BP systolic 132–141; BP diastolic 59–82
[2017-09-28 06:23] LABS: HEMATOCRIT 30.9 % (36.0-46.0); HEMOGLOBIN 9.7 G/DL (11.9-15.5); MCH 30.5 PG (29.0-34.0); MCHC 31.4 G/DL (30.0-36.0); MCV 97.2 FL (83-99); PLATELET COUNT 104 K/uL (156-360); RBC DIS.WIDTH-SD 63.1 % (39-53); RED BLOOD COUNT 3.18 M/uL (3.80-5.20); WHITE BLOOD COUNT 2.6 K/uL (4.1-10.2)
[2017-09-28 06:56] LABS: CHLORIDE 104 MEQ/L (99-109); CREATININE 1.3 MG/DL (0.6-1.3); GFR ESTIMATE (CALCULATED) 42 mL/min/; GLUCOSE 214 mg/dL (70-99); POTASSIUM 4.3 MEQ/L (3.7-5.4); SODIUM 140 MEQ/L (136-147); UREA NITROGEN (BUN) 30 mg/dL (9-23)
[2017-09-29 03:17] VITALS: BP 138/76
[2017-09-29 06:56] LABS: BASOPHIL (%) 0.4 % (0-1); EOSINOPHIL (%) 0 % (0-5); HEMATOCRIT 29.1 % (36.0-46.0); HEMOGLOBIN 9.4 G/DL (11.9-15.5); IMMATURE GRANULOCYTE (%) 0.7 % (0.0-0.7); LYMPHOCYTE COUNT 0.9 K/uL (1.0-2.8); MCH 31.3 PG (29.0-34.0); MCHC 32.3 G/DL (30.0-36.0); MONOCYTE (%) 12.6 % (3-12); MONOCYTE COUNT 0.4 K/uL (0-0.8); NEUTROPHIL (%) 54.3 % (45-76); NEUTROPHIL COUNT 1.5 K/uL (1.8-6.4); PLATELET COUNT 106 K/uL (156-360); RBC DIS.WIDTH-CV 17.3 % (11.8-14.6); RBC DIS.WIDTH-SD 60.9 % (39-53); WHITE BLOOD COUNT 2.8 K/uL (4.1-10.2)
[2017-09-29 07:18] LABS: CHLORIDE 103 MEQ/L (99-109); CREATININE 1.4 MG/DL (0.6-1.3); GFR ESTIMATE (CALCULATED) 39 mL/min/; GLUCOSE 221 mg/dL (70-99); POTASSIUM 4.2 MEQ/L (3.7-5.4); SODIUM 139 MEQ/L (136-147); UREA NITROGEN (BUN) 34 mg/dL (9-23)
[2017-09-29 08:15] VITALS: BP 132/65
[2017-09-29 11:54] VITALS: BP 136/62
[2017-09-29 16:47] VITALS: BP 121/57
== END 2017-09-29 19:07 | disposition home or self-care (01) | DRG 840 ==
LOC: EME 16:00 → EDOF 20:38 → 5EAST 20:38 → ENRESERV 20:39 → 5EAST 21:59 → ENPENDDIS 09-29 → 5EAST 09-29 19:07
PROVIDERS: Emergency Medicine; Hospitalist
PROC: 30233N1 Transfusion of Nonautologous Red Blood Cells into Peripheral Vein, Percutaneous Approach (ICD-10-PCS; principal; 2017-09-27)
PROC: 5A09357 Assistance with Respiratory Ventilation, Less than 24 Consecutive Hours, Continuous Positive Airway Pressure (ICD-10-PCS; 2017-09-28)
DX: C90.00 Multiple myeloma not having achieved remission (principal); D63.0 Anemia in neoplastic disease; D64.81 Anemia due to antineoplastic chemotherapy; T45.1X5A Adverse effect of antineoplastic and immunosuppressive drugs, initial encounter; J96.01 Acute respiratory failure with hypoxia; N17.9 Acute kidney failure, unspecified; D61.818 Other pancytopenia; J44.9 Chronic obstructive pulmonary disease, unspecified; G47.33 Obstructive sleep apnea (adult) (pediatric); I11.0 Hypertensive heart disease with heart failure; I50.22 Chronic systolic (congestive) heart failure; I25.5 Ischemic cardiomyopathy; I27.20 Pulmonary hypertension, unspecified; M79.7 Fibromyalgia; I48.2 Chronic atrial fibrillation; E11.9 Type 2 diabetes mellitus without complications; F41.9 Anxiety disorder, unspecified; E66.9 Obesity, unspecified; Z66 Do not resuscitate; Z96.651 Presence of right artificial knee joint; Z68.34 Body mass index [BMI] 34.0-34.9, adult; Z74.01 Bed confinement status; Z79.01 Long term (current) use of anticoagulants; Z79.82 Long term (current) use of aspirin; Z85.3 Personal history of malignant neoplasm of breast; Z85.528 Personal history of other malignant neoplasm of kidney; Z90.5 Acquired absence of kidney; Z99.3 Dependence on wheelchair; Z99.81 Dependence on supplemental oxygen; Z88.2 Allergy status to sulfonamides; Z88.5 Allergy status to narcotic agent
CPT/HCPCS: 71046; 80048; 80053; 81003; 82948; 84484; 85025; 85027; 86850; 86900; 86901; 86920; 87086; 93005; 94640; 94640 76; 94660; 94799; 99202; 99281; 99285; J1815; J2920; P9016; S0028

== ENCOUNTER → 2017-12-30 | Outpatient (CLI) | payer OTHER, BC ==
[2017-12-30] VITALS (9 sets, daily range): BP systolic 136–203; BP diastolic 64–92
[~2017-12-30] VITALS: Ht 157.5 cm; Wt 81.0 kg
[~2017-12-30] MED LIST changes: +ADVAIR 250/501 DISK IH; +INCRUSE ELLI62.5 MCG IH; +LASIX40 MG PO; +LO-DOSE ASPIRIN81 M2 PO; +TYLENOL REGULA325 MG PO
== END | disposition home or self-care (01) ==
LOC: IVINF 13:00
DX: D64.9 Anemia, unspecified (principal)
CPT/HCPCS: 36430; 86920; 86999; 96374; 96375; J1200; J1940

== ENCOUNTER 2018-01-31 12:40 | Inpatient (IN) | payer OTHER, BC ==
[~2018-01-31] VITALS: Ht 154.9 cm; Wt 73.5 kg
[2018-01-31 13:28] LABS: HEMATOCRIT 29.7 % (36.0-46.0); HEMOGLOBIN 9.4 G/DL (11.9-15.5); MCV 100.3 FL (83-99)
[2018-01-31 14:05] VITALS: BP 165/76
[2018-01-31 18:59] LABS: HEMOGLOBIN 8.9 G/DL (11.9-15.5); MCV 101.4 FL (83-99)
[2018-01-31 22:23] VITALS: BP 143/72
[2018-02-01] VITALS (10 sets, daily range): BP systolic 108–139; BP diastolic 56–600
[2018-02-01 06:43] LABS: HEMATOCRIT 25.3 % (36.0-46.0); HEMOGLOBIN 7.8 G/DL (11.9-15.5); MCV 100.8 FL (83-99)
[2018-02-01 07:04] LABS: CHLORIDE 102 MEQ/L (99-109); CREATININE 1.4 MG/DL (0.6-1.3); GFR ESTIMATE (CALCULATED) 39 mL/min/; GLUCOSE 156 mg/dL (70-99); POTASSIUM 3.6 MEQ/L (3.7-5.4); SODIUM 141 MEQ/L (136-147); UREA NITROGEN (BUN) 25 mg/dL (9-23)
[2018-02-02] VITALS (10 sets, daily range): BP systolic 108–154; BP diastolic 58–72
[2018-02-02 05:53] LABS: HEMATOCRIT 26.2 % (36.0-46.0); HEMOGLOBIN 8.3 G/DL (11.9-15.5); MCV 99.6 FL (83-99)
[2018-02-03 00:18] VITALS: BP 128/68
[2018-02-03 07:29] LABS: MCV 96.4 FL (83-99)
[2018-02-03 07:32] LABS: HEMOGLOBIN 13.2 G/DL (11.9-15.5)
[2018-02-03 08:19] VITALS: BP 134/68
[2018-02-03 11:47] VITALS: BP 130/72
[2018-02-03 15:59] VITALS: BP 118/58
[2018-02-03 17:29] LABS: APPEARANCE SL.HAZY ((CLEAR)); BILIRUBIN NEGATIVE; BLOOD LARGE; COLOR YELLOW ((YELLOW)); GLUCOSE (STRIP) 50; KETONES NEGATIVE; LEUKOCYTES NEGATIVE; NITRITE NEGATIVE; PROTEIN (STRIP) 30; SPECIFIC GRAVITY 1.011 (1.000-1.030); UROBILINOGEN 0.2 MG/DL (0.2-1.0)
[2018-02-03 19:45] LABS: EPITHELIAL CELLS 1+ /HPF; WHITE BLOOD CELLS 0-5 /HPF (0-5)
[2018-02-03 19:46] LABS: BACTERIA 2+ /HPF; MUCUS NONE SEEN /LPF
[2018-02-03 23:19] VITALS: BP 145/60
[2018-02-04 08:05] LABS: HEMATOCRIT 28.2 % (36.0-46.0); MCV 99.3 FL (83-99)
[2018-02-04 08:09] LABS: HEMOGLOBIN 8.9 G/DL (11.9-15.5)
[2018-02-04 08:25] VITALS: BP 108/55
[2018-02-04 16:55] VITALS: BP 102/42
[2018-02-04 23:49] VITALS: BP 116/72
[2018-02-05 07:19] VITALS: BP 118/58
[2018-02-05 07:36] LABS: HEMATOCRIT 28.6 % (36.0-46.0); MCV 98.3 FL (83-99)
[2018-02-05] MEDS ORDERED: OXYCODONE HCL5 MG PO (07:49)
== END 2018-02-05 15:21 | DRG 493 ==
LOC: SDC 12:40 → 2SOUTH 18:42 → ENRESERV 18:50 → 3EAST 22:05
PROVIDERS: Orthopaedic Surgery Sports Medicine; Physician Assistant
PROC: 0QHH36Z Insertion of Intramedullary Internal Fixation Device into Left Tibia, Percutaneous Approach (ICD-10-PCS; principal; 2018-01-31)
PROC: 5A09357 Assistance with Respiratory Ventilation, Less than 24 Consecutive Hours, Continuous Positive Airway Pressure (ICD-10-PCS; 2018-02-02)
DX: M84.462A Pathological fracture, left tibia, initial encounter for fracture (principal); C90.00 Multiple myeloma not having achieved remission; D62 Acute posthemorrhagic anemia; G47.30 Sleep apnea, unspecified; E11.9 Type 2 diabetes mellitus without complications; E83.51 Hypocalcemia; E66.9 Obesity, unspecified; I10 Essential (primary) hypertension; J44.9 Chronic obstructive pulmonary disease, unspecified; M10.9 Gout, unspecified; M06.9 Rheumatoid arthritis, unspecified; Z79.4 Long term (current) use of insulin; K59.00 Constipation, unspecified; R50.82 Postprocedural fever; Z88.5 Allergy status to narcotic agent; Z88.2 Allergy status to sulfonamides; Z68.30 Body mass index [BMI] 30.0-30.9, adult
CPT/HCPCS: 36415; 71045; 73590; 76000; 80048; 80053; 81003; 82306; 82948; 85014; 85018; 85025; 86850; 86900; 86901; 86920; 87641; 94640; 94799; C1713; G0378; J0131; J0690; J1100; J1170; J1644; J1815; J1940; J2405; J3010; J3370; P9016